=== PATIENT | female | born 1995 | race Hispanic/Latino ===

== ENCOUNTER 2018-06-03 20:09 | Emergency (ER) | payer MEDICAID, OTHER ==
[2018-06-03 20:47] LABS: APPEARANCE,URINE Clear (CLEAR); BILIRUBIN,URINE Negative (NEGATIVE); COLOR,URINE Yellow (YELLOW); GLUCOSE, URINE (UA) Negative (NEGATIVE); KETONES,URINE Negative (NEGATIVE); LEUKOCYTE ESTERASE ,URINE Negative (NEGATIVE); NITRATE,URINE Negative (NEGATIVE); OCCULT BLOOD,URINE Negative (NEGATIVE); PH,URINE >=9.0 (5.0-8.0); PROTEIN,URINE Negative (NEGATIVE)
[2018-06-03 21:00] LABS: HCG,QUAL RESULT NEGATIVE (NEGATIVE)
[2018-06-03] MEDS ORDERED: DEXAMETHASONE SOD PHOSPHATE 10MG/ML 1ML VIAL ONE (21:28)
[2018-06-03] MEDS ORDERED: KETOROLAC TROMETHAMINE 30MG/ML ONE (21:29)
== END 2018-06-03 21:43 | disposition home or self-care (01) ==
LOC: EDH 20:09
DX: J10.1 Influenza due to other identified influenza virus with other respiratory manifestations (principal); Z88.0 Allergy status to penicillin; Z88.8 Allergy status to other drugs, medicaments and biological substances; Z98.890 Other specified postprocedural states
CPT/HCPCS: 81003; 81025; 96372 ×2; 99284; J1100; J1885

== ENCOUNTER 2018-09-22 00:34 | Emergency (ER) | payer OTHER ==
[2018-09-22 01:13] LABS: RAPID GROUP A STREP NEGATIVE (NEGATIVE)
[2018-09-22] MEDS ORDERED: ACETAMINOPHEN EXTRA STRENGTH 500 MG TABLET ONE (01:26)
[2018-09-22] MEDS ORDERED: IBUPROFEN 600 MG TABLET ONE (01:26)
[2018-09-22] MEDS ORDERED: ALBUTEROL SULFATE 0.083% 2.5 MG/3 ML INH IH ONE (01:27)
== END 2018-09-22 01:53 | disposition home or self-care (01) ==
LOC: EDH 00:34
DX: J10.1 Influenza due to other identified influenza virus with other respiratory manifestations (principal); Z88.0 Allergy status to penicillin; Z98.890 Other specified postprocedural states; Z88.1 Allergy status to other antibiotic agents
CPT/HCPCS: 87804; 87880; 94640

== ENCOUNTER 2018-12-14 17:40 | Emergency (ER) | payer OTHER | END 2018-12-14 18:58 | disposition home or self-care (01) | LOC: EDH 17:40 | DX: L05.01 Pilonidal cyst with abscess (principal); Z88.0 Allergy status to penicillin; Z88.1 Allergy status to other antibiotic agents | CPT/HCPCS: 10080; 81025 ==